=== PATIENT | male | born 1985 | race Hispanic/Latino ===

== ENCOUNTER 2016-09-05 01:28 | Inpatient (IN) | payer SELFPAY ==
[2016-09-05] VITALS (11 sets, daily range): BP systolic 111–137; BP diastolic 62–82; PULSE 55–91; RESP 16–20; O2SAT 64–97
[~2016-09-05] VITALS: Ht 167.6 cm; Wt 85.0 kg
--- NOTE | 2016-09-05 03:28 | NUR ---
Admit Note Pt arrived to room 3010 at around 0315. Alert and oriented. No pain. Last drink at 6pm when he vomited alot of dark red blood and clots. Drinks on weekends but "alot". Cooperative and pleasant currently, does not appear drunk. Will continue to monitor. Call light within reach. Addendum: 09/05/16 at 0641 by PIPPA NOVAK RN No current signs of withdrawel. CIWA score of zero.
[2016-09-05] MEDS ORDERED: Polyethylene Glycol (PEG) 17 Gm Powder PO PRN (03:30)
[2016-09-05] MEDS ORDERED: Alum-Mag Hydrox-Simeth 30 mL Suspension PO PRN (03:30)
[2016-09-05] MEDS ORDERED: Ondansetron 2 mg/mL 2 mL Inj IVPUSH PRN ×2 (03:30→16:10)
[2016-09-05] MEDS ORDERED: Pantoprazole Inj 40 MG in 0.9% Sodium Chloride 100 ML IV SCH (04:15)
--- NOTE | 2016-09-05 04:34 | PCM.HPMED ---
Subjective Date of Service Sep 05, 2016 Primary Provider: Admitting Physician: Jewel Cornejo MD Primary Care Physician: Chelsea Attending Physician: Jewel Cornejo MD Chief Complaint: Vomiting blood History of Present Illness: Ronaldo Sullivan is a 30-year-old male with no significant past medical history who is transferred from [facility]. Patient presented to [facility] due to hematemesis that started around 1500 on 09/04/16. He states that it worsened with the largest episode occurring around 1800. Patient states after this time he has not had a subsequent episode. He has never experienced hematemesis previously. He has been heavily drinking over the past 2-3 days. Today alone he drank half a gallon of hard liquor. Patient states he typically drinks only on the weekends and consumes 6-12 beers a day. He recently was laid off triggering increased alcohol intake the past few days. In association with his hematemesis he had bilateral cramping of his hands which is now resolved. Patient denies any associated chest pain, shortness of breath, headache, dizziness, abdominal pain, dysuria, hematuria, diarrhea, hematochezia, or melena. He denies any recent use of NSAIDs or other xjrr-fuh-paxmfck medications. He is a daily marijuana user. On presentation to [facility] patient's blood alcohol level was 0.244 and he was also found to have an elevated lactic at 8.1. Hemoglobin and hematocrit were interestingly high. He received a couple liters of normal saline and lactate trended down. Due to his upper GI bleed Dr. Lee, GI, was consulted and agreed to accept the patient and see him in the morning. He requested that Protonix be started. On presentation to [facility] vitals were temperature 36.7, pulse 85, respiratory rate 20, blood pressure 120/76, saturating 95% on room air. Repeat labs pending at this time. Review of Systems: Comprehensive review of systems was conducted with the patient and found to be negative except as noted above in HPI. Allergies Coded Allergies: aloe vera (Verified Allergy, Intermediate, Rash, 09/05/16) Plant Home Medications None PMH None Surgical History Dental work Family History Father - alcoholic with frequent upper GI bleed Mother - hypertension Maternal and paternal grandfather - AL in 60s-70s Social History Hx Alcohol Use: Yes (" on weekends, 6 pack of tall boys") Hx Substance Use: No (everyday marijuana user by inhalation route) Hx Tobacco Use: No Living Arrangement: with Family Exam Vital Signs Vital Sign - Last Date Time Temp Pulse Resp B/P Pulse Ox O2 Delivery O2 Flow Rate FiO2 09/05/16 03:23 91 09/05/16 03:21 36.7 20 128/76 95 Room Air Exam General: No acute distress, well-developed, well-nourished, appropriately interactive HEENT: Normocephalic, atraumatic. Pupils equal, round, and reactive to light and accommodation. Anicteric sclerae. Moist oral mucosa. Neck: Supple with full range of motion. Cardiovascular: Regular rate and rhythm with no murmurs, rubs, or gallops appreciated Pulmonary: Clear to auscultation bilaterally with no crackles, wheezes, or rhonchi. Normal respiratory effort with no use of accessory muscles. Abdomen: Bowel tones present. Soft, nontender, nondistended. Extremities: No clubbing, cyanosis, edema. Skin: Normal temperature, turgor, and texture. Neurological: Cranial nerves grossly intact. Psychiatric: Normal mood and affect. Alert and oriented to person, place, and time. Assessment & Plan Ronaldo Sullivan is a 30-year-old male with no significant past medical history who is transferred from [facility]. Patient presented to [facility] due to hematemesis that started around 1500 on 09/04/16. Transferred to [facility] upper GI bleed workup. Hematemesis, present on admission, active. - Etiology likely upper GI bleed from emesis but cannot rule out esophageal varices or other pathology. - Last episode occurred around 1800 on 09/04/16. No subsequent episodes since. - Hemoglobin and hematocrit stable. - Pantoprazole 40 mg IV twice a day. - Stool guaiac ordered. - Patient to remain NPO. - Gastroenterology consulted. Alcohol intoxication, present on admission, active. - Blood alcohol level at [facility] was 0.244 at 2100. - Patient has no signs of withdrawal. He is not a daily drinker. - No history of withdrawal or delirium tremens. - [facility] protocol in place as a precaution. Lactic acidosis, present on admission, active. - Lactic acid of 8.[address] [facility]. - Patient given IV fluids at [facility] prior to transfer. - Repeat lactic acid pending. PRN Medications - Acetaminophen as needed for mild pain/fever/headache - Bowel regimen as needed - Antiemetic as needed Patient is admitted under observation status with expected length of stay less than 2 midnights due to severity of presenting symptoms, risk of adverse event, and complexity of treatment plan. Pain Evaluation: Adequate Pain Control GI Prophylaxis: Proton Pump Inhibitor VTE Prophylaxis Indicated: Contraindicated (hematemesis) VTE Prophylaxis: SCDs Resuscitation Status: CPR: Attempt Resuscitation Attending Statement The patient was seen and examined together with Dr. Oneil on 09/05 and I agree with the history, exam and plan as outlined in the note above. BRAYAN ONEIL DO Sep 05, 2016 04:34 Jewel Cornejo MD Sep 05, 2016 06:54
[2016-09-05 04:49] LABS: BASOPHILS % (AUTO) 0.3 % (0-3)
[2016-09-05 04:55] LABS: EOSINOPHILS % (AUTO) 0.1 % (0-5); MONOCYTES % (AUTO) 7.4 % (4-12); Mean Corpuscular Hemoglobin 31.3 pg (27.0-35.0); NEUTROPHILS % (AUTO) 65.4 % (40-74); Platelet Count 203 bil/L (150-400)
[2016-09-05 05:07] LABS: Magnesium 1.8 mg/dL (1.6-2.6); Phosphorus 3.3 mg/dL (2.5-4.9)
[2016-09-05] MEDS: Pantoprazole 4 mg/mL 10 mL Inj IVPUSH SCH ×2 (05:23→08:21)
[2016-09-05] MEDS: Multivit-Miner-Folic Acid-Iron Tablet PO SCH (08:21)
[2016-09-05] MEDS ORDERED: Propofol 10,000 mCg/mL 20 mL Inj ONE (10:07)
[2016-09-05 10:44] LABS: APPEARANCE,URINE CLEAR (CLEAR,HAZY); COLOR,URINE YELLOW (YELLOW)
[2016-09-05 10:45] LABS: OCCULT BLOOD,URINE NEGATIVE (NEGATIVE); PH,URINE 6.5 (5.0-8.0)
--- NOTE | 2016-09-05 11:15 | NUR ---
CONCRETE CONVEYOR OPERATOR Per palliative orders increased continuous rate from .05mg qh to 1.0mg qh. Dose adjusted with Jefry Alfonso. Placed pt on CPOX per protocol
--- NOTE | 2016-09-05 15:00 | NUR ---
off unit pt left unit to endo for edg. pt returned at 1700
--- NOTE | 2016-09-05 15:47 | NUR ---
Social Work Note - brief note Ronaldo Sullivan is a 30 yr old who was admitted for a GI bleed. EMR reviewed: Pt does not have insurance, No PCP. Readmit score is 1. FLUOROSCOPE OPERATOR attempted to meet pt - off the floor for GI Scope. FLUOROSCOPE OPERATOR aware that pt has ETOH hx - would benefit from Substance Use assessment. FLUOROSCOPE OPERATOR called [facility] and made referral for help with insurance. Plan: Developing - SW will follow. COREY Farrell
[2016-09-05] MEDS ORDERED: Lactated Ringer's 1,000 ML IV ONE (16:05)
--- NOTE | 2016-09-05 16:06 | PCM.HPANE ---
Patient Data Date of Service: Sep 05, 2016 Surgeon Admitting Provider:Jewel Cornejo MD Attending Provider:Jean Rivera Primary Care Physician:Chelsea Other Provider: Reason for Visit Gi Bleed Ht/WT & BMI Height (Feet): 5 Height (Inches): 6.00 Weight (Kilograms): 85.000 Body Mass Index 30.00 Allergies Coded Allergies: aloe vera (Verified Allergy, Intermediate, Rash, 09/05/16) Plant Past Anesthesia History Anesthesia History: Denies:: Abnormal Airway, Anesthesia Reactions, Difficult Intubation, Fam Anesthesia Reaction, Fam Malignant Hypertherm Diabetes History Hx Diabetes?: No MRSA MRSA: No Medications Hypertension Medication: No Home Meds Incl Beta Evi: No No Active Prescriptions or Reported Meds History History of ENT Problems?: No HEENT History: Denies:: Abnormal Airway Difficult Intubation Denture Type: None Teeth Condition: Within Normal Limits (slighly loose front lower teeth) Missing Teeth Hx of Heart Problems?: No Cardiovascular History: Denies:: Pacemaker Hx of Respiratory Problem?: No Respiratory History: Denies:: Asthma Hx Neurologic Problems?: No Neurological History: Denies:: CVA Hx of GI Problems?: Yes Hx of Problems?: No HX of Peritoneal Dialysis: No Male Hx: Denies:: Prostate Problems Scrotal Mass Testicular Surgery Hx Musculoskeletal Problems?: Yes Musculoskeletal History: Positive for:: Back Injury (when child playing football-bothersome until now) Denies:: Joint Replacement Musculoskeletal Trauma Hx of Psycho/Social Problems?: No Psycho Social History: Positive for:: Anxiety ("Panic attacks") Hx Surgeries?: Yes (Oral surgery) Hx Any Other Health Problems?: Yes History Blood Transfusions: Positive for:: Accept Blood Products? Denies:: Blood Transfuse Reaction Blood Transfusions Hx Diabetes: No Hx Alcohol Use: Yes (Weekends "6 pack"; marijuana daily)Hx Substance Use: Yes (everyday marijuana user by inhalation route) Smoking Status: Current Every Day Smoker Have You Smoked inLast 12 mo: Yes (no tobacco just marijuana for 20 years) Stop/Bang Treated for Sleep Apnea?: No Do You Have a CPAP Machine?: No S-Snoring: Do You Snore Loudly: Yes T-Tired: feel tired, fatigued: No O-Obsered: Observed not breath: No P-Blood Pressure: treated: No B- Body Mass Index > 35 kg/m2: No A- Age over 50: No N- Neck Large Circumference: No G- Gender Male: Yes LEOLA Total Score: 2 LEOLA Risk Assessment: Low Risk, <3 Yes Risk Assessment Category Category 1A: Patient has history of documented sleep apnea, and HAS NOT received any narcotic, sedative or anesthesia administration during this stay. Category 1B: Patient has history of documented sleep apnea, and HAS received any narcotic , sedative or anesthesia administration during this stay Category 2: Patient has SUSPECTED Obstructive Sleep Apnea, and HAS received any narcotic , sedative or anesthesia administration during this stay. Category 3: Patient has SUSPECTED Obstructive Sleep Apnea and HAS NOT received narcotic, sedative or anesthesia administration during this stay. Category 4: Outpatient in Procedural Areas with known sleep apnea or who screen positive for High Risk via the STOP/BANG questionnaire. Exam Exam Vital Signs Vital Signs Date Time Temp Pulse Resp B/P Pulse Ox O2 Delivery O2 Flow Rate FiO2 09/05/16 14:58 70 16 137/82 64 Room Air 09/05/16 13:42 37.2 76 20 130/76 96 Room Air 09/05/16 10:56 84 09/05/16 09:24 36.5 83 16 124/71 94 Room Air General Appearance: Alert, Oriented X3, Cooperative HEENT/AIRWAY: MP 2 Lungs: Clear to Auscultation, Normal Air Movement Heart: Regular Rate/Rhythm, Normal S1, Normal S2 Meds/Labs/Diagnostics Admission Meds Current Medications Prenat Multivit/ Leslie/Iron/Folic Ac ( Vitamins) 1 tablet DAILY PO Last administered on 09/05/16 08:21; Start 09/05/16 at 08:30 Thiamine HCl (Vitamin B1) 100 mg DAILY PO Last administered on 09/05/16 08:21 ; Start 09/05/16 at 08:30 Pantoprazole (Protonix Inj) 40 mg BIDAC IVPUSH Last administered on 09/05/16 08:21; Start 09/05/16 at 04:30 Labs Test 09/05/16 04:30 09/05/16 10:22 White Blood Count 11.6th/mm3 (3.8-10.1) Red Blood Count 4.63mil/mm3 (4.40-5.80) Hemoglobin 14.5g/dL (13.8-17.2) Hematocrit 40.3% (41.0-50.0) Mean Corpuscular Volume 87.0fL (81-100) Mean Corpuscular Hemoglobin 31.3pg (27.0-35.0) Mean Corpuscular Hemoglobin Concent 36.0% (32.0-37.0) Red Cell Distribution Width 13.7% (12.3-15.4) Platelet Count 203bil/L (150-400) Neutrophils (%) (Auto) 65.4% (40-74) Lymphocytes (%) (Auto) 26.6% (14-46) Monocytes (%) (Auto) 7.4% (4-12) Eosinophils (%) (Auto) 0.1% (0-5) Basophils (%) (Auto) 0.3% (0-3) Activated Partial Thromboplast Time 26.7sec (22.8-33.0) Sodium Level 144mEq/L (134-144) Potassium Level 4.2mEq/L (3.5-5.2) Chloride Level 106mEq/L (97-108) Carbon Dioxide Level 21mmol/L (18-29) Blood Urea Nitrogen 10mg/dL (6-20) Creatinine 0.79mg/dL (0.76-1.27) Estimat Glomerular Filtration Rate 121mL/min (>59) Glucose Level 101mg/dL (60-99) Lactic Acid Level 3.1mmol/L (0.4-2.0) Calcium Level 8.2mg/dL (8.5-10.1) Phosphorus Level 3.3mg/dL (2.5-4.9) Magnesium Level 1.8mg/dL (1.6-2.6) Total Bilirubin 0.4mg/dL (0.0-1.2) Aspartate Amino Transf (AST/SGOT) 25U/L (0-50) Alanine Aminotransferase (ALT/SGPT) 26U/L (0-44) Alkaline Phosphatase 90U/L (25-150) Total Protein 7.1g/dL (6.4-8.4) Albumin 4.0g/dL (3.4-5.0) Lipase 22U/L (13-60) Urine Color Yellow (YELLOW) Urine Appearance Clear (CLEAR,HAZY) Urine pH 6.5 (5.0-8.0) Urine Specific Kidder 1.025 (1.003-1.035) Urine Protein Negativemg/dL (NEG,TRACE) Urine Glucose (UA) Negativemg/dL (NEGATIVE) Urine Ketones >=80mg/dL (NEGATIVE) Urine Occult Blood Negative (NEGATIVE) Urine Nitrite Negative (NEGATIVE) Urine Bilirubin Negative (NEGATIVE) Urine Urobilinogen 1.0mg/dL (NORMAL) Urine Leukocyte Esterase Negative (NEGATIVE) Urine RBC 0-2/hpf (0-2) Urine WBC 0-5/hpf (0-5) Urine Epithelial Cells Occasional/hpf (NONE-MOD) Urine Crystals None seen (NONE SEEN) Urine Bacteria None/hpf (NONE-FEW) Urine Hyaline Casts None/lpf (NONE) Urine Granular Casts None seen (NONE SEEN) Urine Waxy Casts None seen (NONE SEEN) Urine Red Blood Cell Casts None seen (NONE SEEN) Urine White Blood Cell Casts None seen (NONE SEEN) Urine Mucus Present (None Seen) Urine Trichomonas None seen (NONE SEEN) Urine Yeast None (NONE SEEN) Urinalysis Comment None Urine Culture Reflexed Not indicated Plan Impression Patient chart reviewed, patient interviewed and anesthestic plan with risks, benefits, and alternatives discussed, and informed consent obtained. NPO per Anesth. Guidelines: Yes ASA Physical Status: ASA2 Mod Systemic Disease Anesthetic Plan: MAC Bene/Risks/Altern/Consents: Yes HP Complete Prior to Induction: Yes Alex Mijares MD Sep 05, 2016 16:06
[2016-09-05] MEDS ORDERED: Lactated Ringer's 1,000 ML IV SCH (16:07)
[2016-09-05] MEDS ORDERED: Atropine 0.4 mg/mL Inj IVPUSH PRN (16:10)
[2016-09-05] MEDS ORDERED: MetoCLOpramide 5 mg/mL 2 mL Inj IVPUSH PRN (16:10)
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
--- NOTE | 2016-09-05 16:49 | PCM.ANEP1 ---
Post Anesthesia PACU Phase 1 Assessment Date of Service: Sep 05, 2016 Vital Signs Vital Signs Date Time Temp Pulse Resp B/P Pulse Ox O2 Delivery O2 Flow Rate FiO2 09/05/16 14:58 70 16 137/82 64 Room Air 09/05/16 13:42 37.2 76 20 130/76 96 Room Air 09/05/16 10:56 84 09/05/16 09:24 36.5 83 16 124/71 94 Room Air Anesthetic Administered: MAC Level of Alertness: Awake, talking DAWKINS's with Equal Strength: Yes Pain: No Nausea or Vomiting: No CV Function & Hydration Stable: Yes Airway Device: Oxygen Delivery: Room Air Lungs: Normal Air Movement PACU Phase 2 Assessment Complications: No Follow up Care: N/A Patient Instructions Provided: N/A Alex Mijares MD Sep 05, 2016 16:49
--- NOTE | 2016-09-05 19:07 | ENDO ---
[address] [address] ENDOSCOPY PROCEDURE PATIENT: SIMON DOMINGUEZ : 1985 MR#: [id number] ADMIT: 09/05/2016 JOB ID: [id number] DATE OF SERVICE: 09/05/2016 PROCEDURE: Esophagogastroduodenoscopy with biopsy. INDICATIONS: A 30-year-old male with self-limited hematemesis following high-volume alcohol consumption. EQUIPMENT: GIF H 180 J. SEDATION: Monitored anesthesia as provided by Dr. Alex Mijares. COMPLICATIONS: None identified. PROCEDURE IN DETAIL: After the risks and benefits were explained, written and verbal informed consent was obtained. The patient was brought into the endoscopy suite and placed into the left lateral decubitus position. Sedation was achieved as above. The scope was introduced into the mouth through the bite block, and advanced under direct visualization to the second portion of the duodenum. The scope was slowly withdrawn to carefully examine the mucosa for any defects or lesions. Retroflexed views were accomplished in the stomach. The stomach was decompressed. The scope removed the patient who tolerated the procedure well. FINDINGS: 1. Duodenum: No new or old blood. No ulcers. No mass lesions. No vascular pathology. Nothing to account for hematemesis. 2. Stomach: No mass lesions. No outlet obstruction. No ulcerations. Retroflexed views of the LES were unremarkable. There were numerous scattered erosive features throughout the body of the stomach consistent with an alcohol-induced gastritis. Random gastric biopsy was taken for exclusion of Helicobacter pylori by PyloriTek assay. 3. Esophagus: The squamocolumnar junction correlated with the top of the gastric folds. The GEJ was at about 37 cm from the incisors. The patient had evidence of LA grade A erosive esophagitis. No ulcerations. Small sliding hiatal hernia was evident. ENDOSCOPIC DIAGNOSES: 1. Subtle sliding hiatal hernia. 2. LA grade A erosive esophagitis. 3. Erosive gastropathy. RECOMMENDATIONS: 1. Await PyloriTek results. These should be available within the next 45 minutes. 2. If Helicobacter is found, it will need to be eradicated with standard triple therapy. 3. At this point, the patient is encouraged to significantly curtail his alcohol intake for the remainder of his life. For any persisting symptoms of dyspepsia or heartburn, I would recommend a trial of an H2 receptor antagonist such ranitidine and, if this is not effective enough, he could trial a course of Prilosec. 4. There is no evidence of any ongoing active bleeding from and from a GI standpoint, the patient could conceivably be discharged home. 5. Advance diet as tolerated. 6. GI will sign off for now. Please contact me with any concerning clinical changes or questions, [phone]. ADDENDUM: H pylori testing was negative. MTDD
[2016-09-06 02:13] VITALS: BP 147/86; PULSE 64; RESP 16; O2SAT 97
[2016-09-06 05:39] VITALS: BP 130/73; PULSE 56; RESP 17; O2SAT 98
[2016-09-06 05:45] VITALS: PULSE 49
--- NOTE | 2016-09-06 06:03 | NUR ---
Pt D/C Today Pt. is scheduled to D/C today. VSS and he is in good spirits. He takes no Rx medications and has no significant medical Hx. Was worked up for GI bleed but was negative. JEN Rt Forearm , Monitor by Telemetry with NSR @ 49. Independent
[2016-09-06 07:40] VITALS: BP 116/67; PULSE 49; RESP 22; O2SAT 96
[2016-09-06] MEDS: Pantoprazole 4 mg/mL 10 mL Inj IVPUSH SCH (07:51)
[2016-09-06] MEDS: Multivit-Miner-Folic Acid-Iron Tablet PO SCH (07:51)
[2016-09-06 08:12] LABS: Mean Corpuscular Hemoglobin 32.1 pg (27.0-35.0)
[2016-09-06 10:40] VITALS: PULSE 58
--- NOTE | 2016-09-06 11:35 | NUR ---
FOLLOW UP APPOINTMENT Scheduled hospital follow up appointment at [facility] Residency [facility] for 09/12/16 check in at 945AM for 10AM appointment with
--- NOTE | 2016-09-06 11:53 | NUR ---
Social Work: Chemical Dependency Assessment CAT TENDER acknowledges order for CD assessment. CAT TENDER attempted CD assessment with pt. Pt declines at this time stating that his recent alcohol use was out of character and a wake up call. Pt declined any CD resources as well. CAT TENDER gave pt CAT TENDER phone number if he changes his mind. CAT TENDER will continue to follow. ALFREDO Pena
[2016-09-06 13:15] VITALS: BP 151/93; PULSE 61; RESP 18; O2SAT 98
--- NOTE | 2016-09-06 13:35 | NUR ---
Social Work: Continued d/c planning / Readiness for d/c / Multidisciplinary Rounds Data: Pt is on day 4 of hospitalization. EMR reviewed. Pt discussed in rounds, MD states pt ready for d/c today. LINK WIRE FABRIC MACHINE OPERATOR acknowledges MD order for CD assessment and set up PCP appointment. UR specialist set up residency clinic appointment for 09/12/16 check in at 9:45am for a 10am appointment with Dr. Valdez. See CD assessment note for further detail of CD assessment. LINK WIRE FABRIC MACHINE OPERATOR met with pt to inform him of Residency Clinic appointment. [facility] application also given at this time. No further d/c planning needs at this time. LINK WIRE FABRIC MACHINE OPERATOR informed MD of progress made. LINK WIRE FABRIC MACHINE OPERATOR will continue to follow if needs arise. Assessment: Pt who is independent at baseline, alcohol hx. Plan: Pt will d/c home via POV with spouse, likely today. Residency clinic appointment for 09/12/16 check in at 9:45am for a 10am appointment with Dr. Valdez. No further d/c planning needs at this time. LINK WIRE FABRIC MACHINE OPERATOR will continue to follow if needs arise. ALFREDO Pena
[2016-09-06] MEDS ORDERED: Thiamine PO (14:06)
[2016-09-06] MEDS ORDERED: PREN1TAB25 PO (14:06)
--- NOTE | 2016-09-06 14:08 | PCM.DIMED ---
Discharge Instructions Date of Service Sep 06, 2016 Dates of Hospitalization Sep 05, 2016 at 03:16 Diet Discharge Diet: Low fat, Low Sodium Call your provider Call your provider for: Chest pain, Vomitting, Excessive diarrhea Patient Instructions Follow-up with PCP in: Other (09/12/16, 9:[address] Valdez ) Phillip Kidd MD Sep 06, 2016 14:08
[2016-09-06] MEDS ORDERED: FAMO20T PO (14:25)
--- NOTE | 2016-09-06 14:43 | NUR ---
Social Work: Discharge Data: Pt is on day 4 of hospitalization. D/C orders are in, disposition is home. No further d/c planning needs at this time. SILK WORKER will continue to follow if needs arise. Assessment: Pt who is independent at baseline, alcohol hx. Plan: Pt will d/c home via POV with spouse today. Residency clinic appointment for 09/12/16 check in at 9:45am for a 10am appointment with Dr. Valdez. No further d/c planning needs at this time. SILK WORKER will continue to follow if needs arise. ALFREDO Pena
--- NOTE | 2016-09-06 14:52 | NUR ---
Discharge pt. dc'd this afternoon; vss; A&Ox3; no s/sx gi bleed; pt. had dark brown formed stool overnight; denies n/v; denies pain or discomfort. Medications reviewed with pt; verbalized understanding; carenotes provided. Discharge instructions/appointments reviewed with pt; verified understanding; phone number provided; no questions about care. PIV dc'd; catheter intact. Addendum: 09/06/16 at 1558 by CLAYTON GRULLON RN escorted by UA to private vehicle, pt. ambulatory
--- NOTE | 2016-09-06 17:26 | PCM.DC.MED ---
Discharge Summary Date of Service Sep 06, 2016 Dates of Hospitalization Date of Hospital Admission Sep 05, 2016 at 03:16 Date of Discharge: Sep 06, 2016 Providers: Admitting Physician: Jewel Cornejo MD Primary Care Physician: Chelsea Attending Physician: Shari Allen MD Diagnosis at Time of Discharge Diagnosis at Time of Discharge Alcohol intoxication resulting in emesis Esophagitis Hiatal hernia Brief History GASTROENTEROLOGY CONSULTATION Patient is a 30-year-old male with no significant past medical history. He has been drinking heavily over the last 2-3 days since he was laid off from work, drinking half gallon of hard liquor yesterday. He had vomiting that started at 1500 with one large episode of emesis at 1800 hrs on August. She has had no emesis since that time. He does report a total of 3-4 episodes of dark red blood. This morning he reports no nausea, vomiting, hematuria, diarrhea, headache, chest pain, shortness of breath, or dizziness. He has not had a bowel movement yet but reports no melena, or hematochezia. He has had no previous episodes of GI bleeding. Hospital Course Ronaldo Sullivan is a 30-year-old male with no significant past medical history who is transferred from [facility]. Patient presented to [place] due to hematemesis that started around 1500 on 09/04/16. Transferred to [facility] upper GI bleed workup. Hematemesis, present on admission, ruled out - concern for upper GI bleed from emesis but cannot rule out esophageal varices or other pathology. - Last episode occurred around 1800 on 09/04/16. No subsequent episodes since. - Hemoglobin and hematocrit stable. - Endoscopy done in patient, results : 1. Subtle sliding hiatal hernia. 2. LA grade A erosive esophagitis. 3. Erosive gastropathy Alcohol intoxication, present on admission, active. - Blood alcohol level at [facility] was 0.244 at 2100. - Patient has no signs of withdrawal. He is not a daily drinker. - No history of withdrawal or delirium tremens. Lactic acidosis, present on admission, active. - Lactic acid of 8.1 on presentation to [facility]. - Patient given IV fluids at [facility] prior to transfer. - repeat lactic acid normalized PRN Medications - Acetaminophen as needed for mild pain/fever/headache - Bowel regimen as needed - Antiemetic as needed . Exam Vital Signs (Last) Date Time Temp Pulse Resp B/P Pulse Ox O2 Delivery O2 Flow Rate FiO2 09/06/16 13:15 36.8 61 18 151/93 98 Room Air Test 09/05/16 04:30 09/05/16 10:22 09/06/16 07:25 Neutrophils (%) (Auto) 65.4% (40-74) Lymphocytes (%) (Auto) 26.6% (14-46) Monocytes (%) (Auto) 7.4% (4-12) Eosinophils (%) (Auto) 0.1% (0-5) Basophils (%) (Auto) 0.3% (0-3) Activated Partial Thromboplast Time 26.7sec (22.8-33.0) Phosphorus Level 3.3mg/dL (2.5-4.9) Magnesium Level 1.8mg/dL (1.6-2.6) Total Bilirubin 0.4mg/dL (0.0-1.2) Aspartate Amino Transf (AST/SGOT) 25U/L (0-50) Alanine Aminotransferase (ALT/SGPT) 26U/L (0-44) Alkaline Phosphatase 90U/L (25-150) Total Protein 7.1g/dL (6.4-8.4) Albumin 4.0g/dL (3.4-5.0) Lipase 22U/L (13-60) Vitamin B12 Level 449pg/mL (211-946) Urine Color Yellow (YELLOW) Urine Appearance Clear (CLEAR,HAZY) Urine pH 6.5 (5.0-8.0) Urine Specific [place] 1.025 (1.003-1.035) Urine Protein Negativemg/dL (NEG,TRACE) Urine Glucose (UA) Negativemg/dL (NEGATIVE) Urine Ketones >=80mg/dL (NEGATIVE) Urine Occult Blood Negative (NEGATIVE) Urine Nitrite Negative (NEGATIVE) Urine Bilirubin Negative (NEGATIVE) Urine Urobilinogen 1.0mg/dL (NORMAL) Urine Leukocyte Esterase Negative (NEGATIVE) Urine RBC 0-2/hpf (0-2) Urine WBC 0-5/hpf (0-5) Urine Epithelial Cells Occasional/hpf (NONE-MOD) Urine Crystals None seen (NONE SEEN) Urine Bacteria None/hpf (NONE-FEW) Urine Hyaline Casts None/lpf (NONE) Urine Granular Casts None seen (NONE SEEN) Urine Waxy Casts None seen (NONE SEEN) Urine Red Blood Cell Casts None seen (NONE SEEN) Urine White Blood Cell Casts None seen (NONE SEEN) Urine Mucus Present (None Seen) Urine Trichomonas None seen (NONE SEEN) Urine Yeast None (NONE SEEN) Urinalysis Comment None Urine Culture Reflexed Not indicated White Blood Count 6.8th/mm3 (3.8-10.1) Red Blood Count 4.83mil/mm3 (4.40-5.80) Hemoglobin 15.5g/dL (13.8-17.2) Hematocrit 43.0% (41.0-50.0) Mean Corpuscular Volume 89.0fL (81-100) Mean Corpuscular Hemoglobin 32.1pg (27.0-35.0) Mean Corpuscular Hemoglobin Concent 36.0% (32.0-37.0) Red Cell Distribution Width 13.6% (12.3-15.4) Platelet Count 191bil/L (150-400) Sodium Level 142mEq/L (134-144) Potassium Level 3.9mEq/L (3.5-5.2) Chloride Level 104mEq/L (97-108) Carbon Dioxide Level 22mmol/L (18-29) Blood Urea Nitrogen 16mg/dL (6-20) Creatinine 0.86mg/dL (0.76-1.27) Estimat Glomerular Filtration Rate 110mL/min (>59) Glucose Level 105mg/dL (60-99) Lactic Acid Level 0.8mmol/L (0.4-2.0) Calcium Level 8.8mg/dL (8.5-10.1) Discharge Medications Discharge Medications ([Thiamine]) 100 MG TABLET 100 MG PO DAILY Prescribed by: SHARI ALLEN MD Famotidine (Pepcid) 20 Mg Tablet 20 MG PO DAILY Prescribed by: SHARI ALLEN MD Vit#96/Ferrous Fum/FA ( Tablet) 1 Each Tablet 1 TABLET PO DAILY Prescribed by: SHARI ALLEN MD Followup Plan Discharge Diet: Low fat, Low Sodium Follow-up Provider: [facility] Follow-up with PCP in: Other (09/12/16, 9:[address] Valdez ) Time spent 35 mins Shari Allen MD Sep 06, 2016 17:25
== END 2016-09-06 15:05 | disposition home or self-care (01) | DRG 392 ==
LOC: MPC 03:16 → MOC 21:39
PROVIDERS: ADMIT Hospitalist; ATTEND Internal Medicine
PROC: 0DB68ZX Excision of Stomach, Via Natural or Artificial Opening Endoscopic, Diagnostic (ICD-10-PCS; principal; 2016-09-05 15:00)
DX: K29.20 Alcoholic gastritis without bleeding (principal); E87.2 Acidosis; F12.90 Cannabis use, unspecified, uncomplicated; F10.129 Alcohol abuse with intoxication, unspecified; K44.9 Diaphragmatic hernia without obstruction or gangrene